=== PATIENT | male | born 1960 | race Caucasian/White ===

== ENCOUNTER 2018-11-06 07:54 | Day surgery (SDC) | payer BC, OTHER ==
[2018-11-04 15:54] VITALS: BMI 31.4
[~2018-11-06 07:54] MED LIST: LACTATED RINGERS 1,000 ML IV SCH; LIDOCAINE 1% 20 ML VIAL (10MG/ML) FOR IV START INTRADERMA PRN
[2018-11-06 08:16] VITALS: RESP 16; TEMP 98.4
[2018-11-06] MEDS ORDERED: PROPOFOL 10 MG/ML 20 ML VIAL IV ONE (09:03)
--- NOTE | 2018-11-06 09:25 | P.PCN ---
Date of Procedure: 11/06/18 Procedure(s) Performed: BRIEF HISTORY: Patient is a 58-year-old pleasant male, scheduled for an elective colonoscopy as a part of value should of intermittent rectal bleeding. His last colonoscopy was 3 years ago and was noted to have mild colitis involving the cecum and hepatic flexure biopsies of which revealed acute colitis. He denies any abdominal pain or change in bowel habits. PROCEDURE PERFORMED: Colonoscopy with biopsy. PREOPERATIVE DIAGNOSIS: Intermittent rectal bleeding and prior history of colitis. IV sedation per Anesthesia. PROCEDURE: After informed consent was obtained, the patient, was brought into the endoscopy unit. IV sedation was administered by Anesthesia under continuous monitoring. Digital rectal examination was normal. Initially the Olympus CF- 160 flexible video colonoscope was then inserted in the rectum, gradually advanced into the cecum without any difficulty. Careful examination was performed as the scope was gradually being withdrawn. Ileocecal valve and the appendiceal orifice were visualized and appeared normal. Prep was excellent. There was mildly evidence of form colitis with mucosal erythema, friability and granularity involving the entire cecum and biopsies were done from this area. Rest of the ascending colon, transverse colon, descending colon, sigmoid colon, and rectum appeared normal. Retroflexion was performed in the rectum and monitor were seen. The patient tolerated the procedure well. IMPRESSION: Mucosal erythema with some friability and granularity in the cecum consistent with colitis status post biopsy to evaluate for inflammatory bowel disease Rest of the colon appeared normal. Small internal hemorrhoids RECOMMENDATIONS: Findings of this examination were discussed with the patient as well as a family. He was advised to follow with the biopsy results. He can have a repeat colonoscopy in 5 years..
[2018-11-06 09:40] VITALS: BP 117/77; PULSE 52
== END 2018-11-06 10:01 | disposition home or self-care (01) ==
LOC: ORWHC2ENDO 07:54
PROVIDERS: ATTEND Internal Medicine Gastroenterology
DX: K52.9 Noninfective gastroenteritis and colitis, unspecified (principal); K64.8 Other hemorrhoids; I10 Essential (primary) hypertension; Z79.899 Other long term (current) drug therapy; Z79.82 Long term (current) use of aspirin
CPT/HCPCS: 88305; 45380; J2704

== ENCOUNTER 2019-07-08 22:59 | Emergency (ER) | payer BC, OTHER ==
[2019-07-08] MEDS ORDERED: SODIUM CHLORIDE 0.9% 1,000 ML BAG ONE (23:30)
[2019-07-08] MEDS ORDERED: DICYCLOMINE 10 MG/ML 2 ML AMP IM ONE (23:30)
[2019-07-09 10:31] LABS: ALT 30 U/L (21-72); AST 26 U/L (17-59); African American GFR (CKD) >90 (>60 ml/min/1.73 sqM); Albumin 4.1 g/dL (3.5-5.0); Alkaline Phosphatase 82 U/L (38-126); Anion Gap 10 mmol/L; Blood Urea Nitrogen 14 mg/dL (9-20); Calcium 9.5 mg/dL (8.4-10.2); Carbon Dioxide 25 mmol/L (22-30); Chloride 105 mmol/L (98-107); Glucose 123 mg/dL (74-99); Potassium 4.1 mmol/L (3.5-5.1); Sodium 140 mmol/L (137-145); Total Bilirubin 0.3 mg/dL (0.2-1.3)
--- NOTE | 2019-07-09 10:40 | XR ---
EXAM: XR Abdomen, 1 View CLINICAL HISTORY: lower abd pain with diarrhea TECHNIQUE: Frontal supine view of the abdomen/pelvis. COMPARISON: No relevant prior studies available. FINDINGS: Gastrointestinal tract: Unremarkable. No dilation. Bones/joints: Unremarkable. Few vascular calcifications in the pelvis. IMPRESSION: No acute disease or bowel obstruction.
[2019-07-09 10:47] LABS: Basophils # (A) 0.1 k/uL (0-0.2); Basophils % (A) 1 %; Eosinophils # (A) 0.2 k/uL (0-0.7); Eosinophils % (A) 2 %; HCT 46.8 % (39.0-53.0); HGB 15.1 gm/dL (13.0-17.5); Lymphocytes # (A) 1.3 k/uL (1.0-4.8); Lymphocytes % (A) 17 %; MCH 29.3 pg (25.0-35.0); MCHC 32.3 g/dL (31.0-37.0); MCV 90.7 fL (80.0-100.0); Mean Platelet Volume 6.7; Monocytes # (A) 0.6 k/uL (0-1.0); Monocytes % (A) 7 %; Neutrophils # (A) 5.4 k/uL (1.3-7.7); Neutrophils % (A) 69 %; Platelet Count 265 k/uL (150-450); RBC 5.16 m/uL (4.30-5.90); RDW 13.5 % (11.5-15.5); WBC 7.8 k/uL (3.8-10.6)
[2019-07-09 11:09] LABS: INR 0.9 (<1.2); Partial Thromboplastin Time 23.9 sec (22.0-30.0); Prothrombin Time 9.9 sec (9.0-12.0)
== END 2019-07-09 03:50 | disposition home or self-care (01) ==
LOC: EC 22:59
DX: R10.30 Lower abdominal pain, unspecified (principal); K64.9 Unspecified hemorrhoids
CPT/HCPCS: 36415; 80053; 83605; 85025; 85610; 85730; 82272; 74019; 99285; 96360; 96372; J0500

== ENCOUNTER → 2019-08-14 | Outpatient (CLI) | payer BC, OTHER ==
[2019-08-14 07:17] LABS: Basophils # (A) 0.1 k/uL (0-0.2); Basophils % (A) 2 %; Eosinophils # (A) 0.2 k/uL (0-0.7); Eosinophils % (A) 4 %; HCT 46.2 % (39.0-53.0); HGB 15.4 gm/dL (13.0-17.5); Lymphocytes # (A) 2.3 k/uL (1.0-4.8); Lymphocytes % (A) 37 %; MCH 30.3 pg (25.0-35.0); MCHC 33.4 g/dL (31.0-37.0); MCV 90.7 fL (80.0-100.0); Mean Platelet Volume 5.9; Monocytes # (A) 0.5 k/uL (0-1.0); Monocytes % (A) 7 %; Neutrophils # (A) 2.9 k/uL (1.3-7.7); Neutrophils % (A) 47 %; Platelet Count 314 k/uL (150-450); RDW 13.3 % (11.5-15.5); WBC 6.2 k/uL (3.8-10.6)
[2019-08-14 08:16] LABS: Erythrocyte Sedimentation Rate 6 mm/hr (0-15)
== END | disposition home or self-care (01) ==
LOC: LABWHC1 06:32
PROVIDERS: ATTEND Nurse Practitioner
DX: K52.9 Noninfective gastroenteritis and colitis, unspecified (principal)
CPT/HCPCS: 36415; 85025; 85652; 86140

== ENCOUNTER → 2020-02-18 | Outpatient (CLI) | payer BC, OTHER ==
[2020-02-18 15:01] LABS: Basophils # (A) 0.1 k/uL (0-0.2); Basophils % (A) 1 %; Eosinophils # (A) 0.1 k/uL (0-0.7); Eosinophils % (A) 2 %; HCT 45.1 % (39.0-53.0); HGB 14.6 gm/dL (13.0-17.5); Lymphocytes # (A) 2.1 k/uL (1.0-4.8); Lymphocytes % (A) 32 %; MCH 30.1 pg (25.0-35.0); MCHC 32.5 g/dL (31.0-37.0); MCV 92.8 fL (80.0-100.0); Mean Platelet Volume 7.6; Monocytes # (A) 0.4 k/uL (0-1.0); Monocytes % (A) 6 %; Neutrophils # (A) 3.5 k/uL (1.3-7.7); Neutrophils % (A) 55 %; Platelet Count 233 k/uL (150-450); RBC 4.86 m/uL (4.30-5.90); RDW 13.7 % (11.5-15.5); WBC 6.3 k/uL (3.8-10.6)
[2020-02-18 23:04] LABS: African American GFR (CKD) 63.3 (60.0-200.0); Albumin 4.2 g/dL (3.80-4.90); Anion Gap 6.8 mmol/L (4.00-12.00); BUN/Creat Ratio 11.43 Ratio (12.00-20.00); Calcium 9.2 mg/dL (8.7-10.3); Carbon Dioxide 27.2 mmol/L (21.6-31.8); Globulin 2.1 g/dL (1.6-3.3); Non-African American GFR(CKD) 54.6 (60.0-200.0); Potassium 4.7 mmol/L (3.5-5.5); Total Bilirubin 0.5 mg/dL (0.2-1.2); Total Protein 6.3 g/dL (6.2-8.2)
== END | disposition home or self-care (01) ==
LOC: LABWHC1 13:43
PROVIDERS: ATTEND Nurse Practitioner
DX: K52.9 Noninfective gastroenteritis and colitis, unspecified (principal)
CPT/HCPCS: 36415; 80053; 85025

== ENCOUNTER → 2020-04-20 | Outpatient (CLI) | payer BC, OTHER ==
[2020-04-20 07:52] LABS: Basophils # (A) 0.1 k/uL (0-0.2); Basophils % (A) 1 %; Eosinophils # (A) 0.1 k/uL (0-0.7); Eosinophils % (A) 1 %; HCT 41.2 % (39.0-53.0); HGB 13.8 gm/dL (13.0-17.5); Lymphocytes # (A) 1.3 k/uL (1.0-4.8); Lymphocytes % (A) 28 %; MCH 30.6 pg (25.0-35.0); MCHC 33.5 g/dL (31.0-37.0); MCV 91.3 fL (80.0-100.0); Mean Platelet Volume 7.3; Monocytes # (A) 0.4 k/uL (0-1.0); Monocytes % (A) 9 %; Neutrophils # (A) 2.7 k/uL (1.3-7.7); Neutrophils % (A) 58 %; Platelet Count 220 k/uL (150-450); RBC 4.51 m/uL (4.30-5.90); RDW 13.9 % (11.5-15.5); WBC 4.7 k/uL (3.8-10.6)
[2020-04-20 13:21] LABS: African American GFR (CKD) 84.1 (60.0-200.0); Albumin 3.9 g/dL (3.80-4.90); Albumin/Globulin Ratio 2.17 (1.60-3.17); Anion Gap 6.6 mmol/L (4.00-12.00); BUN/Creat Ratio 13.64 Ratio (12.00-20.00); Calcium 9.1 mg/dL (8.7-10.3); Carbon Dioxide 29.4 mmol/L (21.6-31.8); Chol/HDL Ratio 2.77; Globulin 1.8 g/dL (1.6-3.3); Non-African American GFR(CKD) 72.6 (60.0-200.0); Total Bilirubin 0.5 mg/dL (0.3-1.2); Total Protein 5.7 g/dL (6.2-8.2)
== END ==
LOC: LABWHC1 07:02
PROVIDERS: ATTEND Nurse Practitioner Adult Health
DX: Z00.00 Encounter for general adult medical examination without abnormal findings (principal); I10 Essential (primary) hypertension; E29.1 Testicular hypofunction; K52.9 Noninfective gastroenteritis and colitis, unspecified; R53.83 Other fatigue
CPT/HCPCS: 36415; 80053; 80061; 82306; 84402; 84403; 84443; 85025

== ENCOUNTER 2021-09-01 19:27 | Emergency (ER) | payer BC, OTHER ==
--- NOTE | 2021-09-01 22:19 | XR ---
INDICATION: Patient age:Male; 61 years old; Reason for study: fall; [facility]. COMPARISON: None TECHNIQUE: The right foot was examined in the AP, oblique, and lateral projections. FINDINGS: No evidence of any acute osseous pathology. No evidence of soft tissue swelling. Joints are preserve d. IMPRESSION: No evidence of acute fracture.
--- NOTE | 2021-09-01 23:13 | XR ---
EXAMINATION TYPE: XR calcaneus 2V RT DATE OF EXAM: 09/01/2021 COMPARISON: NONE HISTORY: Pain TECHNIQUE: 2 views FINDINGS: There is comminuted nondisplaced fracture right calcaneus. Subtalar joint is anatomic. IMPRESSION: Nondisplaced calcaneus fracture.
--- NOTE | 2021-09-01 23:34 | ED ---
Lower Extremity Injury HPI - General Chief Complaint: Extremity Injury, Lower Stated Complaint: Fall-R foot injury Source: patient Mode of arrival: ambulatory Limitations: no limitations - History of Present Illness Initial Comments: 61 year-old male patient presents for evaluation of right foot pain after an injury. He was getting totes out of his attic on a folding ladder when the ladder collapsed and he fell. States he felt he was falling so he jumped and landed with all his weight on the right foot. States he has been having pain in the heel, unable to bear weight. He denies falling all the way down. Did not his his head. No loss of consciousness. He denies any neck or back pain. Denies pain down his legs. Denies saddle anesthesia or loss of bowel or bladder control. Denies numbness or tingling in the feet. - Related Data Home Medications Medication Instructions Recorded Confirmed Ascorbic Acid [Vitamin C] 500 mg PO BID 04/14/14 11/04/18 Aspirin 81 mg PO DAILY 09/29/15 11/04/18 amLODIPine BESYLATE/BENAZEPRIL 1 tab PO QAM 09/29/15 11/06/18 [Lotrel 10-20 mg Capsule] Previous Rx's Medication Instructions Recorded Acetaminophen-Codeine 300-30mg 1 tab PO Q6H PRN #12 tablet 09/01/21 [Tylenol #3] Ibuprofen [Motrin] 600 mg PO Q8HR PRN #30 tab 09/01/21 Allergies Allergy/AdvReac Type Severity Reaction Status Date / Time No Known Allergies Allergy Verified 09/01/21 21:37 Review of Systems ROS Statement: Those systems with pertinent positive or pertinent negative responses have been documented in the HPI. ROS Other: All systems not noted in ROS Statement are negative. Past Medical History Past Medical History: Hyperlipidemia, Hypertension, Sleep Apnea/CPAP/BIPAP Additional Past Medical History / Comment(s): using cpap, hx. colon polyps, hemorrhoids History of Any Multi-Drug Resistant Organisms: None Reported Past Surgical History: Hernia Repair, Orthopedic Surgery Additional Past Surgical History / Comment(s): LEFT ROTATOR CUFF REPAIR, LASIK EYE SURGERY, R ROT CUFF REPAIR FEBRUARY 2014,rt inguinal hernia repair,umbilical her fina repair,colonoscopy Past Anesthesia/Blood Transfusion Reactions: No Reported Reaction Past Psychological History: No Psychological Hx Reported Smoking Status: Never smoker Past Alcohol Use History: Occasional Past Drug Use History: Marijuana - Past Family History Mother Family Medical History: Hypertension Additional Family Medical History / Comment(s): emphysema Father Family Medical History: CVA/TIA General Exam Limitations: no limitations General appearance: alert, in no apparent distress, other (This is a well- developed, well-nourished adult male in no acute distress.) Neck exam: Present: normal inspection, full ROM, other (Nontender, no step-off, no deformity to firm midline palpation of the posterior cervical spine. Full range of motion without pain or limitation.). Absent: tenderness, meningismus, lymphadenopathy Respiratory exam: Present: normal lung sounds bilaterally. Absent: respiratory distress, wheezes, rales, rhonchi, stridor Cardiovascular Exam: Present: regular rate, normal rhythm, normal heart sounds. Absent: systolic murmur, diastolic murmur, rubs, gallop, clicks GI/Abdominal exam: Present: soft, normal bowel sounds. Absent: distended, tenderness, guarding, rebound, rigid Extremities exam: Present: full ROM, normal capillary refill, other (There is significant soft tissue swelling surrounding the right ankle and foot. Skin is otherwise pink, warm, dry. Cap refill less than 3 seconds. Pedal and posttibial pulses 2+.). Absent: normal inspection, pedal edema, joint swelling, calf tenderness Back exam: Present: normal inspection, other (Nontender, no step-off, no deformity to firm midline palpation of the thoracic and lumbar vertebrae. Full range of motion without pain or limitation.). Absent: vertebral tenderness Neurological exam: Present: alert, oriented X3, CN II-XII intact Psychiatric exam: Present: normal affect, normal mood Skin exam: Present: warm, dry, intact, normal color. Absent: rash Course Vital Signs 09/01/21 09/02/21 21:33 00:16 Temperature 98.4 F 98.2 F Pulse Rate 61 64 Respiratory 18 16 Rate Blood Pressure 151/93 148/80 O2 Sat by Pulse 100 98 Oximetry Medical Decision Making - Medical Decision Making 61-year-old male patient presents for evaluation of right foot pain after a fall. Physical examination did reveal significant soft tissue swelling surrounding the right ankle. Neurovascular status is intact. He denies any back pain, there is no spinal tenderness. X-ray was obtained and showed comminuted non-displaced calcaneus fracture. He was placed in posterior splint, given crutches. He is instructed to maintain non-weightbearing until follow up with Ortho. He has seen Dr. Bradley in the past and would like to stick with him. Did discuss return parameters in detail including risk of back injury and also compartment syndrome with this injury. He is instructed to call orthopedics in the morning for an appointment. Return parameters were discussed in detail. He verbalizes understanding and agrees with this plan. Case discussed with my attending Dr. Pantoja. - Radiology Data Radiology results: report reviewed, image reviewed 3 views of the right foot are obtained. Report is reviewed in its entirety. Impression by Dr. Rico shows no acute fracture. 2 views of the right calcaneus is obtained. Report was reviewed in its entirety. Impression by Dr. Chao shows nondisplaced calcaneus fracture. Disposition Clinical Impression: Right calcaneal fracture Disposition: HOME SELF-CARE Condition: Good Instructions (If sedation given, give patient instructions): Calcaneal Fracture (ED), Splint Care (ED) Additional Instructions: Rest, ice, elevate the foot. Remain nonweightbearing until you see sales development specialist. Return for any new, worsening, or concerning symptoms. Prescriptions: Ibuprofen [Motrin] 600 mg PO Q8HR PRN #30 tab PRN Reason: Pain Acetaminophen-Codeine 300-30mg [Tylenol #3] 1 tab PO Q6H PRN #12 tablet PRN Reason: Pain Is patient prescribed a controlled substance at d/c from ED?: Yes When asked, does pt state using other controlled substances?: No If prescribed controlled substance>3 days was MAPS reviewed?: Prescribed <3 Days If opioid is for acute pain is fill amount 7 days or less?: Yes If Rx opioid, was Start Talking consent form obtained?: Yes Referrals: Karrie Rojas NPC [Primary Care Provider] - 1-2 days Brenden Bradley DO [Doctor of Osteopathic Medicine] - 1-2 days Time of Disposition: 23:34
[2021-09-01] MEDS ORDERED: ACET/COD 300 MG/30 MG STARTER PACK 6 TAB BTL PO STA (23:38)
[2021-09-01] MEDS ORDERED: IBUPROFEN 600 MG STARTER PACK 4 TAB BTL PO STA (23:38)
[2021-09-02 00:36] VITALS: BP 148/80; PULSE 64; RESP 16; TEMP 98.2
== END 2021-09-02 00:16 | disposition home or self-care (01) ==
LOC: EC 19:27
DX: S92.001A Unspecified fracture of right calcaneus, initial encounter for closed fracture (principal); E78.5 Hyperlipidemia, unspecified; I10 Essential (primary) hypertension; F12.90 Cannabis use, unspecified, uncomplicated; Z72.89 Other problems related to lifestyle; W11.XXXA Fall on and from ladder, initial encounter
CPT/HCPCS: 99283

== ENCOUNTER → 2022-04-10 | Outpatient (CLI) | payer OTHER ==
[2022-04-10 14:45] LABS: ALT 27 U/L (10-49); AST 23 U/L (14-35); LDL Cholesterol,Calculated 98.2 mg/dL (0.0-131.0); VLDL Calculation 19.78 mg/dL (5.00-40.00)
== END | disposition home or self-care (01) ==
LOC: LABWHC1 08:16
PROVIDERS: ATTEND Nurse Practitioner Gerontology
DX: Z12.5 Encounter for screening for malignant neoplasm of prostate (principal); E78.5 Hyperlipidemia, unspecified; I10 Essential (primary) hypertension
CPT/HCPCS: 36415; 80061; 84153; 84450; 84460

== ENCOUNTER 2023-07-20 10:51 | Day surgery (SDC) | payer OTHER ==
[~2023-07-20 10:51] MED LIST changes: -LIDOCAINE 1% 20 ML VIAL (10MG/ML) FOR IV START INTRADERMA PRN
[2023-07-20 12:35] VITALS: TEMP 97.5
[2023-07-20] MEDS ORDERED: PROPOFOL 10 MG/ML 20 ML VIAL IV ONE (12:48)
--- NOTE | 2023-07-20 13:03 | P.PCN ---
Date of Procedure: 07/20/23 Procedure(s) Performed: BRIEF HISTORY: Patient is a 63-year-old pleasant white male scheduled for an elective colonoscopy as a part of evaluation of right lower quadrant abdominal pain for the last several months duration. PROCEDURE PERFORMED: Colonoscopy. PREOPERATIVE DIAGNOSIS: . Lower abdominal pain for the last 3 months duration IV sedation per Anesthesia. PROCEDURE: After informed consent was obtained, the patient, was brought into the endoscopy unit. IV sedation was administered by Anesthesia under continuous monitoring. Digital rectal examination was normal. Initially the Olympus CF-160 flexible video colonoscope was then inserted in the rectum, gradually advanced into the cecum without any difficulty. Careful examination was performed as the scope was gradually being withdrawn. Ileocecal valve and the appendiceal orifice were visualized and appeared normal. Prep was excellent. terminal ileum was intubated and 20 cm visualized and appeared normal. Mucosa of the cecum, ascending colon, transverse colon, descending colon, sigmoid colon, and rectum appeared normal. Retroflexion was performed in the rectum and no lesions were seen. The patient tolerated the procedure well. IMPRESSION: Normal-appearing colon from rectum to cecum no evidence of colorectal neoplasia . RECOMMENDATIONS: Findings of this examination were discussed with the patient as well as his family. He was advised to have a repeat screening colonoscopy in 10 years.
[2023-07-20 13:18] VITALS: RESP 16
[2023-07-20 13:38] VITALS: BP 128/79; PULSE 63
== END 2023-07-20 13:49 | disposition home or self-care (01) ==
LOC: ORWHC2ENDO 10:51
PROVIDERS: ATTEND Internal Medicine Gastroenterology
DX: R10.31 Right lower quadrant pain (principal); I10 Essential (primary) hypertension; E78.5 Hyperlipidemia, unspecified; G47.33 Obstructive sleep apnea (adult) (pediatric); Z79.899 Other long term (current) drug therapy
CPT/HCPCS: 45378; J2704

== ENCOUNTER 2024-09-29 10:52 | Emergency (ER) | payer OTHER ==
--- NOTE | 2024-09-29 13:03 | US ---
EXAMINATION TYPE: US scrotum with doppler. DATE OF EXAM: 09/29/2024 COMPARISON: NONE CLINICAL INDICATION: Male, 64 years old with history of pain; rt groin pain and swelling of rt testic le TECHNIQUE: Grayscale, color Doppler and spectral Doppler imaging of the scrotum. FINDINGS: EXAM MEASUREMENTS: TESTICLES: Right Testicle: 3.7x1.8x3.3cm Left Testicle: 3.8x2.0x2.6cm EPIDIDYMIS HEAD: Right Epididymis: 1.1x0.8x0.6cm Anechoic areas seen: 1: 0.5x0.5x0.6cm 2:0.9x0.9x1.2cm Left Epididymis: 0.7x0.9x0.4cm Doppler performed to assess for testicular vascularity; good bilateral color flow and spectral wavefo robyn are seen. Presence of hydroceles: no Presence of varicoceles: bilateral Appears to be a normal appearing lymph node in Rt Groin AOC: 1.8x0.7x1.3cm ? Rt Scrotal wall thickening IMPRESSION: Mild asymmetric right sided scrotal wall thickening. Symmetric blood flow to both testicl es is seen. A few tiny simple cysts in the right epididymis are noted. No significant scrotal fluid c ollection or hydroceles are seen bilaterally. [facility], , 09/29/2024 1:00 PM
--- NOTE | 2024-09-29 14:47 | ED ---
General Adult HPI - General Chief complaint: Urogenital Stated complaint: Urogenital Time Seen by Provider: 09/29/24 11:04 Source: patient, RN notes reviewed Mode of arrival: ambulatory Limitations: no limitations - History of Present Illness Initial comments: 64-year-old male presents emergency department from urgent care for evaluation of scrotal pain. Patient states that started approximately 1 week ago. Patient has right-sided scrotal pain, swelling. Patient was sent over here for an ultrasound. She has no dysuria no flank pain no other associate symptoms denies any fevers or chills. - Related Data Home Medications Medication Instructions Recorded Confirmed Ascorbic Acid [Vitamin C] 500 mg PO BID 04/14/14 07/20/23 Beet Root 1 tab PO DAILY 07/18/23 07/20/23 Sildenafil [Revatio] 20 mg PO DIRECTED PRN 07/18/23 07/20/23 lisinopriL [Zestril] 40 mg PO DAILY 07/18/23 07/20/23 minoxidiL [minoxidiL For Men] 1 applic TOPICAL DAILY 07/18/23 07/20/23 Previous Rx's Medication Instructions Recorded Sulfamethox-Tmp 800-160Mg [Bactrim 1 each PO Q12HR #20 tab 09/29/24 Ds] Allergies Allergy/AdvReac Type Severity Reaction Status Date / Time No Known Allergies Allergy Verified 09/29/24 11:52 Review of Systems ROS Statement: Those systems with pertinent positive or pertinent negative responses have been documented in the HPI. ROS Other: All systems not noted in ROS Statement are negative. Past Medical History Past Medical History: Hyperlipidemia, Hypertension, Sleep Apnea/CPAP/BIPAP Additional Past Medical History / Comment(s): using cpap, hx. colon polyps, hemorrhoids History of Any Multi-Drug Resistant Organisms: None Reported Past Surgical History: Hernia Repair, Orthopedic Surgery Additional Past Surgical History / Comment(s): LEFT ROTATOR CUFF REPAIR, LASIK EYE SURGERY, R ROT CUFF REPAIR FEBRUARY 2014,rt inguinal hernia repair,umbilical hernia repair,colonoscopy Past Anesthesia/Blood Transfusion Reactions: No Reported Reaction Past Psychological History: No Psychological Hx Reported Smoking Status: Current some day smoker Past Alcohol Use History: Occasional Past Drug Use History: Marijuana - Past Family History Mother Family Medical History: Hypertension Additional Family Medical History / Comment(s): emphysema Father Family Medical History: CVA/TIA General Exam Limitations: no limitations General appearance: alert, in no apparent distress Head exam: Present: atraumatic, normocephalic, normal inspection Eye exam: Present: normal appearance, PERRL, EOMI. Absent: scleral icterus, conjunctival injection, periorbital swelling ENT exam: Present: normal exam, normal oropharynx, mucous membranes moist Neck exam: Present: normal inspection, full ROM. Absent: tenderness, meningismus, lymphadenopathy Respiratory exam: Present: normal lung sounds bilaterally. Absent: respiratory distress, wheezes, rales, rhonchi, stridor Cardiovascular Exam: Present: regular rate, normal rhythm, normal heart sounds. Absent: systolic murmur, diastolic murmur, rubs, gallop, clicks GI/Abdominal exam: Present: soft, normal bowel sounds. Absent: distended, tenderness, guarding, rebound, rigid exam: Present: testicular tenderness, scrotal swelling. Absent: normal inspection, urethral discharge Back exam: Absent: CVA tenderness (R), CVA tenderness (L) Course Vital Signs 09/29/24 09/29/24 09/29/24 11:48 15:03 15:11 Temperature 98.3 F 98.4 F 97.9 F Pulse Rate 68 82 69 Respiratory 22 18 18 Rate Blood Pressure 162/99 157/80 179/85 O2 Sat by Pulse 97 95 95 Oximetry Medical Decision Making - Medical Decision Making Was pt. sent in by a medical professional or institution (, PA, RUBBER PRESS TENDER, urgent care, hospital, or fci...) When possible be specific @ -PCP Did you speak to anyone other than the patient for history (EMS, parent, family, police, friend...)? What history was obtained from this source @ -No Did you review nursing and triage notes (agree or disagree)? Why? @ -I reviewed and agree with nursing and triage notes Were old charts reviewed (outside hosp., previous admission, EMS record, old EKG, old radiological studies, urgent care reports/EKG's, fci records)? Report findings @ -No old charts were reviewed Differential Diagnosis (chest pain, altered mental status, abdominal pain women, abdominal pain men, vaginal bleeding, weakness, fever, dyspnea, syncope, headache, dizziness, GI bleed, back pain, seizure, CVA, palpatations, mental health, musculoskeletal)? @ -Epididymitis, scrotal abscess, scrotal cellulitis, testicular torsion EKG interpreted by me (3pts min.). @ -None X-rays interpreted by me (1pt min.). @ -None done CT interpreted by me (1pt min.). @ -None done U/S interpreted by me (1pt. min.). @ -Ultrasound scrotum showing epididymal cyst, thickening of the scrotal wall What testing was considered but not performed or refused? (CT, X-rays, U/S, labs)? Why? @ -None What meds were considered but not given or refused? Why? @ -None Did you discuss the management of the patient with other professionals (professionals i.e. , PA, RUBBER PRESS TENDER, lab, RT, psych nurse, addiction social worker, restaurant mgr, teacher, chief innovation officer, piano case maker)? Give summary @ -No Was smoking cessation discussed for >3mins.? @ -No Was critical care preformed (if so, how long)? @ -No Were there social determinants of health that impacted care today? How? (Homelessness, low income, unemployed, alcoholism, drug addiction, transportation, low edu. Level, literacy, decrease access to med. care, detention, rehab)? @ -No Was there de-escalation of care discussed even if they declined (Discuss DNR or withdrawal of care, Hospice)? DNR status @ -No What co-morbidities impacted this encounter? (DM, HTN, Smoking, COPD, CAD, Cancer, CVA, ARF, Chemo, Hep., AIDS, mental health diagnosis, sleep apnea, morbid obesity)? @ -None Was patient admitted / discharged? Hospital course, mention meds given and route, prescriptions, significant lab abnormalities, going to OR and other pertinent info. @ -Discharge urinalysis unremarkable patient does have thickening of the scrotal wall concerning for early cellulitic changes and inguinal lymph nodes. Patient started on Bactrim will follow-up with PCP return for as discussed. Undiagnosed new problem with uncertain prognosis? @ -No Drug Therapy requiring intensive monitoring for toxicity (Heparin, Nitro, Insulin, Cardizem)? @ -No Were any procedures done? @ -No Diagnosis/symptom? @ -Scrotal pain, cellulitis Acute, or Chronic, or Acute on Chronic? @ -Acute Uncomplicated (without systemic symptoms) or Complicated (systemic symptoms)? @ -Uncomplicated Side effects of treatment? @ -No Exacerbation, Progression, or Severe Exacerbation? @ -No Poses a threat to life or bodily function? How? (Chest pain, USA, OR, pneumonia, PE, COPD, DKA, ARF, appy, cholecystitis, CVA, Diverticulitis, Homicidal, Roula cidal, threat to staff... and all critical care pts) @ -No - Lab Data Lab Results 09/29/24 Range/Units 14:39 Urine Color Colorless Urine Appearance Clear (Clear) Urine pH 5.0 (5.0-8.0) Ur Specific [place] 1.011 (1.001-1.035) Urine Protein Negative (Negative) Urine Glucose (UA) Negative (Negative) Urine Ketones 1+ H (Negative) Urine Blood Negative (Negative) Urine Nitrite Negative (Negative) Urine Bilirubin Negative (Negative) Urine Urobilinogen <2.0 (<2.0) mg/dL Ur Leukocyte Esterase Negative (Negative) Disposition Clinical Impression: Inguinal adenopathy, Cellulitis of scrotum Disposition: HOME SELF-CARE Condition: Stable Instructions (If sedation given, give patient instructions): Scrotal Pain (ED) Additional Instructions: Please return to the Emergency Department if symptoms worsen or any other concerns. Prescriptions: Sulfamethox-Tmp 800-160Mg [Bactrim Ds] 1 each PO Q12HR #20 tab Is patient prescribed a controlled substance at d/c from ED?: No Referrals: Griffin Richter MD [Primary Care Provider] - 1-2 days Time of Disposition: 15:08
[2024-09-29 14:56] LABS: Appearance,Urine Clear (Clear); Bilirubin,Urine Negative (Negative); Blood,Urine Negative (Negative); Color,Urine Colorless; Glucose,Urine (UA) Negative (Negative); Ketones,Urine 1+ (Negative); Leukocyte Esterase,Urine Negative (Negative); Nitrite,Urine Negative (Negative); Protein,Urine Negative (Negative); Specific Gravity,Urine 1.011 (1.001-1.035); Urobilinogen,Urine <2.0 mg/dL (<2.0)
[2024-09-29 15:05] VITALS: RESP 18
[2024-09-29 15:13] VITALS: BP 179/85; PULSE 69; TEMP 97.9
== END 2024-09-29 15:16 | disposition home or self-care (01) ==
LOC: EC 10:52
DX: N49.2 Inflammatory disorders of scrotum (principal); R59.0 Localized enlarged lymph nodes; F17.200 Nicotine dependence, unspecified, uncomplicated
CPT/HCPCS: 76870; 81003; 93975; 99284

== ENCOUNTER → 2024-12-11 | Outpatient (CLI) | payer OTHER ==
--- NOTE | 2024-12-11 13:49 | USB ---
Reason for Exam: Clinical finding. Technique: Method: Targeted. Findings: The retroareolar of both breasts was scanned. Target ultrasound shows no worrisome solid cystic mass or abnormal fluid collection at area of concern subareolar region right breast. Comparison views of left breast subareolar region performed show no suspicious abnormality. Overall Assessment: Negative, BI-RAD 1 Management: Clinical Management of the right breast. Advise clinical management of right-sided pain. A clinical breast exam by your physician is recommended on an annual basis and results should be correlated with mammographic findings. This exam should not preclude additional follow-up of suspicious palpable abnormalities. Results were given to the patient verbally at the time of exam. [facility], , 12/11/2024 10:14 AM. Electronically signed and approved by: Christofer Whipple M.D.
== END | disposition home or self-care (01) ==
LOC: RADMAMWWP 09:46
PROVIDERS: ATTEND Family Medicine
DX: N64.4 Mastodynia (principal)

== ENCOUNTER 2025-03-25 09:08 | Observation (INO) | payer MEDICARE, OTHER ==
--- NOTE | 2025-03-25 09:34 | ED ---
General Adult HPI - General Chief complaint: Chest Pain Stated complaint: Chest Pain Time Seen by Provider: 03/25/25 09:15 Source: patient, RN notes reviewed, old records reviewed Mode of arrival: ambulatory Limitations: no limitations - History of Present Illness Initial comments: This is a 65-year-old male who presents to the emergency department with a past medical history significant for high blood pressure. Patient states other than that he has no medical problems. Patient states his only medication is lisinopril. Patient comes in today complaining of chest pain started a little bit yesterday afternoon but he woke up this morning and it was a little worse and it was centered in the middle of his chest. Patient states the pain radiated to the left side of his chest as well. Patient denied any diaphoretic episode. Patient denies any back pain or neck pain. Patient denied any nausea. Patient denied any shortness of breath or difficulty breathing. Patient denies any recent fever chills or cough. Patient states the pain is still there currently. Patient states he did take a nitroglycerin at home today but did not help. Patient denies any vomiting or diarrhea. Patient denied any abdominal pain. - Related Data Home Medications Medication Instructions Recorded Confirmed Ascorbic Acid [Vitamin C] 500 mg PO DAILY 04/14/14 03/25/25 lisinopriL [Zestril] 40 mg PO DAILY 07/18/23 03/25/25 Cholecalciferol [Vitamin D3 (25 25 mcg PO DAILY 03/25/25 03/25/25 Mcg = 1000 Iu)] Nitroglycerin Sl Tabs [Nitrostat] 0.4 mg SUBLINGUAL Q5M PRN 03/25/25 03/25/25 Allergies Allergy/AdvReac Type Severity Reaction Status Date / Time No Known Allergies Allergy Verified 03/25/25 11:44 Review of Systems ROS Statement: Those systems with pertinent positive or pertinent negative responses have been documented in the HPI. ROS Other: All systems not noted in ROS Statement are negative. Past Medical History Past Medical History: Hyperlipidemia, Hypertension, Sleep Apnea/CPAP/BIPAP Additional Past Medical History / Comment(s): using cpap, hx. colon polyps, hemorrhoids History of Any Multi-Drug Resistant Organisms: None Reported Past Surgical History: Hernia Repair, Orthopedic Surgery Additional Past Surgical History / Comment(s): LEFT ROTATOR CUFF REPAIR, LASIK EYE SURGERY, R ROT CUFF REPAIR FEBRUARY 2014,rt inguinal hernia repair,umbilical hernia repair,colonoscopy Past Anesthesia/Blood Transfusion Reactions: No Reported Reaction Past Psychological History: No Psychological Hx Reported Smoking Status: Current some day smoker Past Alcohol Use History: Occasional Past Drug Use History: Marijuana - Past Family History Mother Family Medical History: Hypertension Additional Family Medical History / Comment(s): emphysema Father Family Medical History: CVA/TIA General Exam - General Exam Comments Initial Comments: GENERAL: Patient is well-developed and well-nourished. Patient is nontoxic and well- hydrated and is in mild distress. ENT: Neck is soft and supple. No significant lymphadenopathy is noted. Oropharynx is clear. Moist mucous membranes. Neck has full range of motion without eliciting any pain. EYES: The sclera were anicteric and conjunctiva were pink and moist. Extraocular movements were intact and pupils were equal round and reactive to light. Eyelids were unremarkable. PULMONARY: Unlabored respirations. Good breath sounds bilaterally. No audible rales rhonchi or wheezing was noted. CARDIOVASCULAR: There is a regular rate and rhythm without any murmurs gallops or rubs. ABDOMEN: Soft and nontender with normal bowel sounds. SKIN: Skin is clear with no lesions or rashes and otherwise unremarkable. NEUROLOGIC: Patient is alert and oriented x3. Cranial nerves II through XII are grossly intact. Motor and sensory are also intact. Normal speech, volume and content. Symmetrical smile. MUSCULOSKELETAL: Normal extremities with adequate strength and full range of motion. No lower extremity swelling or edema. No calf tenderness. LYMPHATICS: No significant lymphadenopathy is noted PSYCHIATRIC: Normal psychiatric evaluation. Limitations: no limitations Course Vital Signs 03/25/25 03/25/25 09:14 10:15 Temperature 97.4 F L Pulse Rate 52 L 49 L Respiratory 20 18 Rate Blood Pressure 160/92 131/96 O2 Sat by Pulse 99 95 Oximetry Medical Decision Making - Medical Decision Making EKG is interpreted by myself EKG shows a sinus bradycardia at 51 bpm VA 172 QRS is 93 QT interval is 454 QTc is 431. Patient's EKG shows no ST segment elevation or depression. Was pt. sent in by a medical professional or institution (, PA, VESSEL SCRAPPER HELPER, urgent care, hospital, or fdc...) When possible be specific @ -No Did you speak to anyone other than the patient for history (EMS, parent, family, police, friend...)? What history was obtained from this source @ -No Did you review nursing and triage notes (agree or disagree)? Why? @ -I reviewed and agree with nursing and triage notes Were old charts reviewed (outside hosp., previous admission, EMS record, old EKG, old radiological studies, urgent care reports/EKG's, fdc records)? Report findings @ -No old charts were reviewed Differential Diagnosis? @ -Differential Chest Pain: Stable Angina, Unstable Angina, STEMI, NSTEMI Aortic Dissection, Pneumothorax, Musculoskeletal, Esophageal Spasm GERD, Cholecystitis, Pancreatitis, Zoster, this is not meant to be an all-inclusive list. EKG interpreted by me (3pts min.). @ -As above X-rays interpreted by me (1pt min.). @ -Chest x-ray shows no acute abnormality CT interpreted by me (1pt min.). @ -None done U/S interpreted by me (1pt. min.). @ -None done What testing was considered but not performed or refused? (CT, X-rays, U/S, labs)? Why? @ -None What meds were considered but not given or refused? Why? @ -None Did you discuss the management of the patient with other professionals (professionals i.e. , PA, VESSEL SCRAPPER HELPER, lab, RT, psych nurse, social media specialist, engineering clerk, teacher, tax compliance officer, watch case polisher)? Give summary @ -I spoke with [facility] agreed to admit the patient I admitted the patient wrote admitting orders. Was smoking cessation discussed for >3mins.? @ -No Was critical care preformed (if so, how long)? @ - no Were there social determinants of health that impacted care today? How? (Homelessness, low income, unemployed, alcoholism, drug addiction, transportation, low edu. Level, literacy, decrease access to med. care, [facility], rehab)? @ -No Was there de-escalation of care discussed even if they declined (Discuss DNR or withdrawal of care, Hospice)? DNR status @ -No What co-morbidities impacted this encounter? (DM, HTN, Smoking, COPD, CAD, Cancer, CVA, ARF, Chemo, Hep., AIDS, mental health diagnosis, sleep apnea, morbid obesity)? @ -None Was patient admitted / discharged? Hospital course, mention meds given and route, prescriptions, significant lab abnormalities, going to OR and other pertinent info. @ -Patient continued to have chest pain throughout his ED course. Patient will be admitted to [facility] with a consult to cardiology. Undiagnosed new problem with uncertain prognosis? @ -No Drug Therapy requiring intensive monitoring for toxicity (Heparin, Nitro, Insulin, Cardizem)? @ -No Were any procedures done? @ -No Diagnosis/symptom? @ -Unstable angina Acute, or Chronic, or Acute on Chronic? @ -Acute Uncomplicated (without systemic symptoms) or Complicated (systemic symptoms)? @ -Complicated Side effects of treatment? @ -No Exacerbation, Progression, or Severe Exacerbation? @ -No Poses a threat to life or bodily function? How? (Chest pain, USA, PR, pneumonia, PE, COPD, DKA, ARF, appy, cholecystitis, CVA, Diverticulitis, Homicidal, Suicidal, threat to staff... and all critical care pts) @ -Yes this could lead to an PR and endorgan dysfunction - Lab Data Result diagrams: 03/25/25 10:12 03/25/25 10:40 Lab Results 03/25/25 03/25/25 03/25/25 Range/Units 10:12 10:12 10:12 WBC 5.53 (4.50-10.00) 10*3/uL RBC 4.84 (4.40-5.60) 10*6/uL Hgb 14.6 (13.0-17.0) g/dL Hct 43.4 (39.6-50.0) % MCV 89.7 (80.0-97.0) fL MCH 30.2 (27.0-32.0) pg MCHC 33.6 (32.0-37.0) g/dL Plt Count 216 (140-440) 10*3/uL MPV 10.4 (9.5-12.2) fL Immature Gran % (Auto) 0.2 % Neutrophils % 61.4 % Lymphocytes % 23.0 % Monocytes % 10.7 % Eosinophils % 3.1 % Basophils % 1.6 % Immature Gran # 0.01 (0.00-0.04) 10*3/uL Neutrophils # 3.40 (1.80-7.70) 10*3/uL Lymphocytes # 1.27 (0.90-5.00) 10*3/uL Monocytes # 0.59 (0.20-1.00) 10*3/uL Eosinophils # 0.17 (0.04-0.35) 10*3/uL Basophils # 0.09 (0.00-0.10) 10*3/uL PT 11.5 (10.0-12.5) sec INR 1.0 (<1.2) APTT 25.3 (22.0-30.0) sec Sodium (137-145) mmol/L Potassium (3.5-5.1) mmol/L Chloride (98-107) mmol/L Carbon Dioxide (22-30) mmol/L Anion Gap mmol/L BUN (9-20) mg/dL Creatinine (0.66-1.25) mg/dL Est GFR (CKD-EPI)AfAm (>60 ml/min/1.73 sqM) Est GFR (CKD-EPI)NonAf (>60 ml/min/1.73 sqM) Glucose (74-99) mg/dL Calcium (8.4-10.2) mg/dL Magnesium (1.6-2.3) mg/dL Total Bilirubin (0.2-1.3) mg/dL AST (17-59) U/L ALT (4-49) U/L Alkaline Phosphatase (38-126) U/L Troponin I 0.023 (0.000-0.034) ng/mL Total Protein (6.3-8.2) g/dL Albumin (3.5-5.0) g/dL 03/25/25 Range/Units 10:40 WBC (4.50-10.00) 10*3/uL RBC (4.40-5.60) 10*6/uL Hgb (13.0-17.0) g/dL Hct (39.6-50.0) % MCV (80.0-97.0) fL MCH (27.0-32.0) pg MCHC (32.0-37.0) g/dL Plt Count (140-440) 10*3/uL MPV (9.5-12.2) fL Immature Gran % (Auto) % Neutrophils % % Lymphocytes % % Monocytes % % Eosinophils % % Basophils % % Immature Gran # (0.00-0.04) 10*3/uL Neutrophils # (1.80-7.70) 10*3/uL Lymphocytes # (0.90-5.00) 10*3/uL Monocytes # (0.20-1.00) 10*3/uL Eosinophils # (0.04-0.35) 10*3/uL Basophils # (0.00-0.10) 10*3/uL PT (10.0-12.5) sec INR (<1.2) APTT (22.0-30.0) sec Sodium 140 (137-145) mmol/L Potassium 4.7 (3.5-5.1) mmol/L Chloride 104 (98-107) mmol/L Carbon Dioxide 26 (22-30) mmol/L Anion Gap 10 mmol/L BUN 16 (9-20) mg/dL Creatinine 1.19 (0.66-1.25) mg/dL Est GFR (CKD-EPI)AfAm 74 (>60 ml/min/1.73 sqM) Est GFR (CKD-EPI)NonAf 64 (>60 ml/min/1.73 sqM) Glucose 96 (74-99) mg/dL Calcium 9.3 (8.4-10.2) mg/dL Magnesium 1.9 (1.6-2.3) mg/dL Total Bilirubin 0.8 (0.2-1.3) mg/dL AST 32 (17-59) U/L ALT 26 (4-49) U/L Alkaline Phosphatase 66 (38-126) U/L Troponin I (0.000-0.034) ng/mL Total Protein 6.4 (6.3-8.2) g/dL Albumin 3.9 (3.5-5.0) g/dL Disposition Clinical Impression: Unstable angina pectoris, Bradycardia Disposition: ADMITTED IP TO THIS [facility] Time of Disposition: 12:18
[2025-03-25] MEDS: ASPIRIN 81 MG PO STA (10:16)
[2025-03-25] MEDS: NITROGLYCERIN OINT 1 INCH/GM PACKET TOPICAL STA (10:17)
[2025-03-25 10:21] LABS: Basophils # (A) 0.09 10*3/uL (0.00-0.10); Basophils % (A) 1.6 %; Eosinophils # (A) 0.17 10*3/uL (0.04-0.35); Eosinophils % (A) 3.1 %; HCT 43.4 % (39.6-50.0); HGB 14.6 g/dL (13.0-17.0); Lymphocytes # (A) 1.27 10*3/uL (0.90-5.00); Lymphocytes % (A) 23.0 %; MCH 30.2 pg (27.0-32.0); MCHC 33.6 g/dL (32.0-37.0); MCV 89.7 fL (80.0-97.0); Monocytes # (A) 0.59 10*3/uL (0.20-1.00); Monocytes % (A) 10.7 %; Neutrophils # (A) 3.40 10*3/uL (1.80-7.70); Neutrophils % (A) 61.4 %; Platelet Count 216 10*3/uL (140-440); RBC 4.84 10*6/uL (4.40-5.60); RDW 14.1 % (11.5-14.5); WBC 5.53 10*3/uL (4.50-10.00)
--- NOTE | 2025-03-25 10:43 | XR ---
EXAMINATION TYPE: XR chest 2V DATE OF EXAM: 03/25/2025 10:32 AM COMPARISON: 04/14/2014 CLINICAL INDICATION: Male, 65 years old with history of Chest Pain: Shortness of breath TECHNIQUE: XR chest 2V views of the chest are obtained. FINDINGS: Scattered senescent parenchymal changes noted. Hyperinflation compatible with COPD. No evidence for infiltrate. No evidence for atelectasis. Heart size is stable. Mediastinal structures are stable and grossly unremarkable. No evidence for hilar prominence. Degenerative changes dorsal spine. IMPRESSION: 1. No evidence for acute pulmonary disease. [facility], , 03/25/2025 10:40 AM
[2025-03-25 10:54] LABS: INR 1.0 (<1.2); Partial Thromboplastin Time 25.3 sec (22.0-30.0); Prothrombin Time 11.5 sec (10.0-12.5)
[2025-03-25 11:46] LABS: ALT 26 U/L (4-49); African American GFR (CKD) 74 (>60 ml/min/1.73 sqM); Albumin 3.9 g/dL (3.5-5.0); Anion Gap 10 mmol/L; Blood Urea Nitrogen 16 mg/dL (9-20); Calcium 9.3 mg/dL (8.4-10.2); Carbon Dioxide 26 mmol/L (22-30); Chloride 104 mmol/L (98-107); Glucose 96 mg/dL (74-99); Non-African American GFR(CKD) 64 (>60 ml/min/1.73 sqM); Sodium 140 mmol/L (137-145); Total Protein 6.4 g/dL (6.3-8.2)
[2025-03-25 11:49] LABS: AST 32 U/L (17-59); Alkaline Phosphatase 66 U/L (38-126); Potassium 4.7 mmol/L (3.5-5.1)
[2025-03-25 11:50] LABS: Magnesium 1.9 mg/dL (1.6-2.3)
[2025-03-25] MEDS ORDERED: NITROGLYCERIN SL TABS 0.4 MG TAB SUBLINGUAL PRN (12:19)
[2025-03-25] MEDS: HEPARIN SODIUM 1,000 UN/ML (10ML VL) IV ONE (14:15)
[2025-03-25] MEDS: HEPARIN SOD,PORK IN 0.45% NACL 25,000 UNIT in 0.45% NACL 1 250ML.BAG IV SCH (14:16)
[2025-03-25] MEDS ORDERED: HYDROcodone/APAP 5-325MG 1 EACH TAB PO PRN (16:37)
[2025-03-25] MEDS: HYDROmorphone 0.5 MG/0.5 ML SYRINGE IVP PRN (16:44)
[2025-03-25] MEDS ORDERED: TEMAZEPAM 15 MG CAP PO PRN (17:18)
[2025-03-25] MEDS ORDERED: ALPRAZolam 0.25 MG TAB PO PRN (17:18)
[2025-03-25] MEDS: NITROGLYCERIN OINT 1 INCH/GM PACKET TOPICAL SCH (18:24)
--- NOTE | 2025-03-26 04:41 | HP ---
HISTORY AND PHYSICAL CHIEF COMPLAINT: Chest pain. HISTORY OF PRESENT ILLNESS: This is a 65-year-old gentleman with a past medical history of hypertension, hyperlipidemia, sleep apnea, being followed by Dr. Richter in the outpatient setting, complaining of chest pain. The pain is mostly located on the left side which is severe, 10/10 intensity. There is no history of any fever, rigors, or chills. No history of any diaphoresis. The patient came to [facility]. Initial workup was negative at this time. D-dimer is not available. The patient admitted for evaluation and treatment. EKG, which I reviewed, showed no acute abnormality. There is no history of any fever, rigors, or chills at this time. PAST MEDICAL HISTORY: Hypertension, hyperlipidemia, and sleep apnea. Rest of the history and chart are also reviewed. HOME MEDICATIONS: Reviewed, include Zestril. Dose and rest of medications reviewed. ALLERGIES: None. FAMILY HISTORY: History of hypertension and emphysema. SOCIAL HISTORY: Smoking. REVIEW OF SYSTEMS: Fourteen-point review of systems is negative except as mentioned earlier. PHYSICAL EXAMINATION: VITAL SIGNS: Pulse is 50, blood pressure 140/80, and respirations 18. HEENT: Conjunctivae normal. NECK: No JVD. CARDIOVASCULAR: S1, S2. RESPIRATION: Breath sounds diminished at the bases. No rhonchi, no crackles. ABDOMEN: Soft, nontender. EXTREMITIES: Legs, no edema, no swelling. NERVOUS SYSTEM: Nonfocal. Minimal local tenderness present. LABORATORY DATA: CBC and CMP noted. EKG and chest x-ray reviewed. ASSESSMENT: 1. Chest pain, rule out unstable angina. 2. Hypertension. 3. Hyperlipidemia. 4. Sleep apnea using CPAP. 5. History of hemorrhoids. 6. History of degenerative joint disease. 7. History of nicotine dependence. RECOMMENDATION: This is a 65-year-old gentleman presented with multiple complex medical issues. We will monitor the patient closely. I would recommend diffuse combination of Dilaudid and [place] for pain management. Cardiology consultation to rule out myocardial infarction. Otherwise, I would also recommend a 2D echo with Doppler. Continue to monitor. Further recommendation is to follow. See orders for further details. Possible stress test in the morning. MMODL / IJN: [id number] /
[2025-03-26] MEDS: PANTOPRAZOLE 40 MG TABLET PO SCH (06:03)
[2025-03-26 08:00] VITALS: RESP 17
[2025-03-26] MEDS ORDERED: ASPIRIN 325 MG TAB PO SCH (09:00)
[2025-03-26] MEDS ORDERED: DOBUTamine DRIP for NUC MED 500 MG in DEXTROSE/WATER 1 250ML.BAG IV PRN (10:22)
[2025-03-26] MEDS: ASPIRIN 81 MG PO SCH (11:37)
[2025-03-26] MEDS: ASCORBIC ACID 500 MG TAB PO SCH (11:37)
[2025-03-26] MEDS: CHOLECALCIFEROL 25 MCG (1000 IU) TABLET PO SCH (11:38)
[2025-03-26 12:01] LABS: Basophils # (A) 0.09 X 10*3/uL (0.00-0.10); Basophils % (A) 1.5 %; Eosinophils # (A) 0.26 X 10*3/uL (0.04-0.35); Eosinophils % (A) 4.2 %; HCT 44.9 % (39.6-50.0); HGB 14.7 g/dL (13.0-17.0); Immature Grans, Automated 0.30 %; Lymphocytes # (A) 1.45 X 10*3/uL (0.90-5.00); Lymphocytes % (A) 23.5 %; MCH 29.8 pg (27.0-32.0); MCHC 32.7 g/dL (32.0-37.0); MCV 90.9 FL (80.0-97.0); Monocytes # (A) 0.75 X 10*3/uL (0.20-1.00); Monocytes % (A) 12.2 %; NRBC Per 100 WBC 0 X 10*3/uL (0.00-0.01); Neutrophils # (A) 3.59 X 10*3/uL (1.80-7.70); Neutrophils % (A) 58.3 %; Platelet Count 216 X 10*3/uL (140-440); RBC 4.94 X 10*6/uL (4.40-5.60); RDW 14.3 % (11.5-14.5); WBC 6.16 X 10*3/uL (4.50-10.00)
--- NOTE | 2025-03-26 12:42 | CA ---
Transthoracic Echo Report Name: Neeraj Javier Age: 65 Gender: M : 1960 Exam Date: 03/26/2025 11:04 Exam Location: [facility] Ht (in): 68 Wt (lb): 202 Ordering Physician: Chapincito Foreman MD Attending/Referring Phys: Prn Occupational Therapist Peri Pitt RDCS Procedure CPT: Indications: Chest Pain Cardiac Hx: Technical Quality: Good Contrast 1: Total Dose (mL): Contrast 2: Total Dose (mL): MEASUREMENTS (Male / Female) Normal Values 2D ECHO LV Diastolic Diameter PLAX 4.7 cm 4.2 - 5.9 / 3.9 - 5.3 cm LV Systolic Diameter PLAX 3.2 cm IVS Diastolic Thickness 1.2 cm 0.6 - 1.0 / 0.6 - 0.9 cm LVPW Diastolic Thickness 1.0 cm 0.6 - 1.0 / 0.6 - 0.9 cm LV Relative Wall Thickness 0.5 RV Internal Dim ED PLAX 3.2 cm LA Systolic Diameter LX 3.2 cm 3.0 - 4.0 / 2.7 - 3.8 cm LV Diastolic Volume MOD 4C 104.6 cm??? LV Systolic Volume MOD 4C 41.8 cm??? LV Ejection Fraction MOD 4C 60.0 % LV Cardiac Index MOD 4C 2305.1 cm???/min???m??? LV Diastolic Length 4C 9.8 cm LV Systolic Length 4C 7.6 cm LV Diastolic Volume MOD 2C 86.4 cm??? LV Systolic Volume MOD 2C 27.3 cm??? LV Ejection Fraction MOD 2C 68.5 % LV Cardiac Index MOD 2C 2172.4 cm???/min???m??? LV Diastolic Length 2C 8.0 cm LV Systolic Length 2C 6.3 cm LA Volume 43.6 cm??? 18 - 58 / 22 - 52 cm??? LA Volume Index 20.6 cm???/m??? 16 - 28 cm???/m??? M-MODE Aortic Root Diameter MM 3.2 cm AV Cusp Separation MM 2.5 cm DOPPLER MV Area PHT 3.2 cm??? Mitral E Point Velocity 107.0 cm/s Mitral A Point Velocity 88.0 cm/s Mitral E to A Ratio 1.2 MV Deceleration Time 240.1 ms TR Peak Velocity 202.6 cm/s TR Peak Gradient 16.4 mmHg Right Ventricular Systolic Press 21.4 mmHg FINDINGS Left Ventricle Left ventricular ejection fraction is estimated at 60-65 %. Left ventricular cavity size normal. Mildly increased septal wall thickness. Normal left ventricular wall motion. Right Ventricle Normal right ventricular size. Right ventricular systolic pressure within normal limits. Right Atrium Normal right atrial size. No right atrial thrombus or mass seen. Left Atrium Normal left atrial size. No left atrial thrombus or mass present. Mitral Valve Structurally normal mitral valve. No mitral stenosis, regurgitation or prolapse. Aortic Valve Trileaflet aortic valve. No aortic valve stenosis or regurgitation. Tricuspid Valve Structurally normal tricuspid valve. Trace to mild tricuspid regurgitation. Pulmonic Valve Pulmonic valve not well visualized. No pulmonic regurgitation. Pericardium No pericardial effusion. Aorta Normal size aortic root and proximal ascending aorta. CONCLUSIONS This normal LV function Previewed by: Dr. Vidal Malave MD (Electronically Signed) Final Date: 26 March 2025 12:41
--- NOTE | 2025-03-26 12:43 | CA ---
Dobutamine Stress Echocardiogram Report Neeraj Javier Age: 65 Gender: M : 1960 Exam Date: 03/26/2025 10:45 Exam Location: [place] [facility] Ordering Physician: Aylsha Demarco Referring Physician: [id number] Wound Care Specialist: lia dallas Technologist: Ht (in): 68 Wt (lb): 202 Procedure CPT: Indication: CP ICD-9 Codes: Rhythm: Patient History: Cardiac Medications: SEE CHART,,,,, Medications in past 24 hours: Contrast: N/A Total Dose (mL): NA Stress Results Protocol: Dobutamine Peak Dose (???g/kg/min): 30 Duration (min:sec): Atropine:(mg) None Target HR: 132 Double Product: Resting HR: 58 Resting BP: 153 / 90 Peak HR: 141 Peak BP: 147 / 61 Max Predicted HR: 155 91 % Max Predicted HR Stress Summary: BP Response: Reason for Termination: Target HR Cardiac Symptoms: NO SYMPTOMS ECG Analysis Resting EKG: Normal sinus rhythm normal axis normal intervals Stress EKG: Patient was given intravenous dobutamine of 9 minutes per protocol achieving 85% of predicted maximal heart rate without chest pain or diagnostic ST segment depression Arrhythmia: Echo Analysis Base Echo Analysis: Normal left ventricular size wall motion and systolic function Low Echo Anaylsis: Normal Peak Echo Analysis: Normal hyperdynamic response Recovery Echo: Normal MEASUREMENTS (Male/Female) Normal Values CONCLUSIONS Negative dobutamine stress echo Dr. Vidal Malave MD (Electronically Signed) Final Date: 26 March 2025 12:42
--- NOTE | 2025-03-26 12:50 | P.CRDCN ---
History of Present Illness History of present illness: HISTORY OF PRESENT ILLNESS: This is a 65-year-old male with a past medical history significant for hypertension. Patient follows in the office with Dr. Malave but has not been seen in the office since February 2024. We have been asked to see the patient in consultation for chest pain. Patient examined at the bedside. Patient states he has been having chest pain over the past couple days. He states that the pain has been intermittent and feels like a sharp pain on the left side of his chest. Patient presented to the hospital for further evaluation. He was given nitro which did not help his pain. However he has been receiving Dilaudid which has helped his discomfort. Cardiac enzymes were negative. EKG revealed sinus mechanism with no signs of acute ischemia. REVIEW OF SYSTEMS: At the time of my exam: CONSTITUTIONAL: Denies fever or chills. HEENT: Denies blurred vision, vision changes, or eye pain. Denies hemoptysis CARDIOVASCULAR: Denies chest pain. Denies orthopnea. Denies PND. Denies palpitations RESPIRATORY: Denies shortness of breath. GASTROINTESTINAL: Denies abdominal pain. Denies nausea or vomiting. HEMATOLOGIC: Denies bleeding disorders. GENITOURINARY: Denies any blood in urine. SKIN: Denies pruitis. Denies rash. PHYSICAL EXAM: VITAL SIGNS: Reviewed. GENERAL: Well-developed in no acute distress. HEENT: Head is normocephalic. Pupils are equal, round. Sclerae anicteric. Mucous membranes of the mouth are moist. Neck supple. No JVD or thyromegaly LUNGS: Respirations even and unlabored. Lungs essentially clear to auscultation bilaterally. HEART: Regular rate and rhythm. S1 and S2 heard. ABDOMEN: Soft. Nondistended. Nontender. EXTREMITIES: Normal range of motion. No clubbing or cyanosis. Peripheral pulses intact. No lower extremity edema NEUROLOGIC: Awake and alert. Oriented x 3. ASSESSMENT: Chest pain, ACS rule out Hypertension PLAN: 2D echo obtained and reviewed Patient underwent dobutamine stress echocardiogram today which was negative for ischemia Add amlodipine 5 mg daily for optimal blood pressure control Patient is stable for discharge home today from a cardiac standpoint Patient to follow-up postdischarge in the office with Dr. Malave Nurse practitioner note has been reviewed by physician. Signing provider agrees with the documented findings, assessment, and plan of care documented by FUR STORAGE CLERK as a scribe. Past Medical History Past Medical History: Hyperlipidemia, Hypertension, Sleep Apnea/CPAP/BIPAP Additional Past Medical History / Comment(s): hx. colon polyps, hemorrhoids History of Any Multi-Drug Resistant Organisms: None Reported Past Surgical History: Hernia Repair, Orthopedic Surgery Additional Past Surgical History / Comment(s): LEFT ROTATOR CUFF REPAIR, LASIK EYE SURGERY, R ROT CUFF REPAIR FEBRUARY 2014,rt inguinal hernia repair,umbilical hernia repair,colonoscopy Past Anesthesia/Blood Transfusion Reactions: No Reported Reaction Past Psychological History: No Psychological Hx Reported Smoking Status: Current some day smoker Past Alcohol Use History: Occasional Additional Past Alcohol Use History / Comment(s): quit smoking 1993, started sm oking 1971 Past Drug Use History: Marijuana - Past Family History Mother Family Medical History: Hypertension Additional Family Medical History / Comment(s): emphysema Father Family Medical History: CVA/TIA Medications and Allergies Home Medications Medication Instructions Recorded Confirmed Type Ascorbic Acid [Vitamin C] 500 mg PO DAILY 04/14/14 03/25/25 History lisinopriL [Zestril] 40 mg PO DAILY 07/18/23 03/25/25 History Cholecalciferol [Vitamin D3 (25 25 mcg PO DAILY 03/25/25 03/25/25 History Mcg = 1000 Iu)] Nitroglycerin Sl Tabs [Nitrostat] 0.4 mg SUBLINGUAL Q5M PRN 03/25/25 03/25/25 History Allergies Allergy/AdvReac Type Severity Reaction Status Date / Time No Known Allergies Allergy Verified 03/25/25 11:44 Physical Exam Vitals: Vital Signs Temp Pulse Pulse Resp BP BP Pulse Ox 03/26/25 07:12 98 F 52 L 17 155/85 96 03/26/25 02:15 98.1 F 54 L 16 168/90 98 03/25/25 20:00 54 L 03/25/25 19:04 98.0 F 54 L 16 152/90 98 03/25/25 17:34 97.7 F 47 L 16 167/83 99 03/25/25 17:15 50 L 18 149/82 99 03/25/25 16:00 55 L 16 137/78 95 03/25/25 14:25 47 L 18 140/78 97 Intake and Output 03/25/25 03/26/25 03/26/25 22:59 06:59 14:59 Intake Total 0 0 Balance 0 0 Intake: Oral 0 0 Other: # Voids 2 Weight 91.626 kg Results 03/26/25 06:32 03/25/25 10:40 Cardiac Enzymes 03/25/25 03/25/25 Range/Units 13:14 15:57 Troponin I <0.012 <0.012 (0.000-0.034) ng/mL CBC 03/26/25 Range/Units 06:32 WBC 6.16 (4.50-10.00) X 10*3/uL RBC 4.94 (4.40-5.60) X 10*6/uL Hgb 14.7 (13.0-17.0) g/dL Hct 44.9 (39.6-50.0) % Plt Count 216 (140-440) X 10*3/uL Current Medications Generic Name Dose Route Start Last Admin Trade Name Freq PRN Reason Stop Dose Admin Hydrocodone Bitart/Acetaminophen 1 each 03/25/25 16:37 Hydrocodone/Apap 5-325mg 1 Each Tab PO Q6HR PRN Pain Alprazolam 0.25 mg 03/25/25 17:18 Alprazolam 0.25 Mg Tab PO TID PRN Anxiety Ascorbic Acid 500 mg 03/26/25 09:00 03/26/25 11:37 Ascorbic Acid 500 Mg Tab PO 500 mg DAILY YONATAN Administration Aspirin 81 mg 03/26/25 09:00 03/26/25 11:37 Aspirin 81 Mg PO 81 mg DAILY YONATAN Administration Cholecalciferol 25 mcg 03/26/25 09:00 03/26/25 11:38 Cholecalciferol 25 Mcg (1000 Iu) Tablet PO 25 mcg DAILY YONATAN Administration Hydromorphone HCl 0.5 mg 03/25/25 16:36 03/26/25 08:12 Hydromorphone 0.5 Mg/0.5 Ml Syringe IVP 0.5 mg Q4HR PRN Administration Pain PO Intolerant Dobutamine HCl/Dextrose 500 mg 250 mls @ 27.488 mls/hr 03/26/25 10:22 / IV Solution IV 03/26/25 14:22 .Q9H6M PRN Per Protocol Protocol 10 MCG/KG/MIN Lisinopril 40 mg 03/26/25 09:00 03/26/25 11:37 Lisinopril 20 Mg Tab PO 40 mg DAILY YONATAN Administration Nitroglycerin 0.4 mg 03/25/25 12:19 Nitroglycerin Sl Tabs 0.4 Mg Tab SUBLINGUAL Q5M PRN Chest Pain Nitroglycerin 1 inch 03/25/25 18:00 03/26/25 06:56 Nitroglycerin Oint 1 Inch/Gm Packet TOPICAL Not Given Q6HR YONATAN Pantoprazole Sodium 40 mg 03/26/25 07:30 03/26/25 06:03 Pantoprazole 40 Mg Tablet PO 40 mg [id number] YONATAN Administration Temazepam 15 mg 03/25/25 17:18 Temazepam 15 Mg Cap PO HS PRN Insomnia Intake and Output 03/25/25 03/26/25 03/26/25 22:59 06:59 14:59 Intake Total 0 0 Balance 0 0 Intake: Oral 0 0 Other: # Voids 2 Weight 91.626 kg 03/26/25 06:32 03/25/25 10:40
[2025-03-26 14:07] LABS: Cholesterol 221.00 mg/dL (0.00-200.00); HDL Cholesterol 54.40 mg/dL (40.00-60.00); LDL Cholesterol,Calculated 144.6 mg/dL (0.0-131.0); Triglycerides 110.00 mg/dL (0.00-149.00); VLDL Calculation 22.00 mg/dL (5.00-40.00)
[2025-03-26 14:08] LABS: Anion Gap 10.80 mmol/L (4.00-12.00); BUN/Creat Ratio 13.36 Ratio (12.00-20.00); Blood Urea Nitrogen 18.7 mg/dL (9.0-27.0); Calcium 8.8 mg/dL (8.7-10.3); Carbon Dioxide 24.2 mmol/L (21.6-31.8); Chloride 107 mmol/L (96-109); Glucose 111 mg/dL (70-110); Potassium 4.2 mmol/L (3.5-5.5); Sodium 142 mmol/L (135-145)
[2025-03-26] MEDS: amLODIPine 5 MG TAB PO SCH (14:26)
[2025-03-26 15:12] VITALS: BP 147/88; PULSE 62; TEMP 97.9
--- NOTE | 2025-03-28 11:48 | P.DS ---
Providers Date of admission: 03/25/25 12:23 Expected date of discharge: 03/26/25 Attending physician: Marquis Mendoza Consults: 03/25/25 12:19 Consult Physician Urgent Consulting Provider: [facility] Consult Reason/Comments: Unstable angina, bradycardia Do you want consulting provider notified?: Yes Primary care physician: Griffin Richter Hospital Course: Final diagnosis Chest pain, possible unstable angina, ACS ruled out, negative stress testing Hypertension Hyperlipidemia Obesity with a BMI of 30.7 Sleep apnea uses a CPAP History of hemorrhoids History of degenerative joint disease History of nicotine dependence GI prophylaxis DVT prophylaxis Full code Discharge disposition Patient is being discharged in a stable condition with guarded prognosis to home. Patient will follow-up with Dr. Richter in the outpatient setting upon discharge. Patient is to continue with current medications and outpatient follow-up with cardiology as scheduled. Total time taken is greater than 35 minutes. Hospital course This is a 65-year-old male who was recently admitted with chest pain being closely monitored with cardiology following. Patient underwent stress test with echo which was negative and has been cleared by cardiology recommending outpatient follow-up. Patient to follow-up with primary care provider in the outpatient setting. Please refer to cardiology notes for further HPI. Currently no reports of chest pain, shortness of breath, or palpitations. Patient is afebrile. No reports of nausea or vomiting and patient is tolerating diet. Patient will be discharged home today. Physical exam: Gen: This is a 65-year-old male who is awake, alert and oriented x 3, well- developed, well-nourished, obese HEENT: Head is atraumatic, normocephalic. Pupils equal, round. Sclerae is anicteric. NECK: Supple. No JVD. No lymphadenopathy. No thyromegaly. LUNGS: Diminished breath sounds bilaterally otherwise clear to auscultation. No wheezes or rhonchi. No intercostal retractions. HEART: S1, S2 are muffled ABDOMEN: Soft. Obese bowel sounds are present. No masses. No tenderness. EXTREMITIES: No pedal edema. No calf tenderness. NEUROLOGICAL: Patient is awake, alert and oriented x3. Cranial nerves 2 through 12 are grossly intact. Please refer to medication reconciliation sheet for a list of medications. The impression and plan of care has been dictated by Eva Santacruz, Nurse Practitioner as directed. Dr. Reji MD I have performed a history and examination and MDM of this patient, discussed the same with the dictator, and agree with the dictator's assessment and plan as written ,documented as a scribe. Based on total visit time, I have performed more than 50% of the visit. Patient Condition at Discharge: Fair Plan - Discharge Summary New Discharge Prescriptions: New Aspirin 81 mg PO DAILY #30 tab Pantoprazole [Protonix] 40 mg PO AC-BRKFST #30 tab amLODIPine [Norvasc] 5 mg PO DAILY #30 tab Continue Ascorbic Acid [Vitamin C] 500 mg PO DAILY Cholecalciferol [Vitamin D3 (25 Mcg = 1000 Iu)] 25 mcg PO DAILY lisinopriL [Zestril] 40 mg PO DAILY Nitroglycerin Sl Tabs [Nitrostat] 0.4 mg SUBLINGUAL Q5M PRN PRN Reason: Chest Pain Discharge Medication List Ascorbic Acid [Vitamin C] 500 mg PO DAILY 04/14/14 [History] lisinopriL [Zestril] 40 mg PO DAILY 07/18/23 [History] Cholecalciferol [Vitamin D3 (25 Mcg = 1000 Iu)] 25 mcg PO DAILY 03/25/25 [History] Nitroglycerin Sl Tabs [Nitrostat] 0.4 mg SUBLINGUAL Q5M PRN 03/25/25 [History] Aspirin 81 mg PO DAILY #30 tab 03/26/25 [Rx] Pantoprazole [Protonix] 40 mg PO AC-BRKFST #30 tab 03/26/25 [Rx] amLODIPine [Norvasc] 5 mg PO DAILY #30 tab 03/26/25 [Rx] Follow up Appointment(s)/Referral(s): Griffin Richter MD [Primary Care Provider] - 1-2 days Vidal Malave MD [STAFF PHYSICIAN] - 04/02/25 10:15 am Activity/Diet/Wound Care/Special Instructions: Activity limited until follow-up Follow-up with primary care provider on discharge Follow-up with cardiology outpatient Continue taking medications as prescribed Follow low-cholesterol heart healthy diet Discharge Disposition: HOME SELF-CARE
== END 2025-03-26 16:00 | disposition home or self-care (01) ==
LOC: EC 09:08 → OBSVTOIN 12:23 → 6NMEDSUR 12:23 → INTOOBSV 12:23 → 6NMEDSUR 17:07
PROVIDERS: ADMIT Hospitalist; ATTEND Hospitalist
DX: R07.89 Other chest pain (principal); R00.1 Bradycardia, unspecified; I10 Essential (primary) hypertension; E78.5 Hyperlipidemia, unspecified; G47.30 Sleep apnea, unspecified; M19.90 Unspecified osteoarthritis, unspecified site; E66.9 Obesity, unspecified; Z68.30 Body mass index [BMI] 30.0-30.9, adult; F17.200 Nicotine dependence, unspecified, uncomplicated; Z79.899 Other long term (current) drug therapy; Z87.19 Personal history of other diseases of the digestive system
CPT/HCPCS: 96376 ×2; 96374; 99285; 36415; 93005; 93306; 93351; 85379; 80061; 80053; 80048; 83735; 84484; 85025 ×2; 85610; 85730; 71046; G0378 ×2; J1171 ×2